=== PATIENT | male | born 1955 | race Caucasian/White ===

== ENCOUNTER 2019-12-22 12:54 | Outpatient (REF) | payer BC, SELFPAY ==
[2019-12-22 20:59] LABS: ALT 36 U/L (16-63); AST 29 U/L (15-37); Calculated LDL 51 mg/dL (<100); Cholesterol 129 mg/dL (<200); HDL Cholesterol 73 mg/dL (40-60); Triglyceride 27 mg/dL (<150)
[2019-12-26 09:06] LABS: PSA, Screening 0.2 ng/mL (0.0-4.5)
== END 2019-12-22 13:14 ==
LOC: NCHCN 12:54
PROVIDERS: PCP Nurse Practitioner; Visit Provider Nurse Practitioner Family
DX: Z00.00 Encounter for general adult medical examination without abnormal findings (principal); Z13.220 Encounter for screening for lipoid disorders; Z12.5 Encounter for screening for malignant neoplasm of prostate
CPT/HCPCS: 80061; 84153; 84450; 84460

== ENCOUNTER 2020-07-03 02:04 | Outpatient (CLI) | payer BC, SELFPAY ==
--- NOTE | 2020-07-03 16:03 | DI.US_ITS ---
APPROVED REPORT EXAM: Comprehensive 2D, Doppler, and color-flow Echocardiogram Patient Location: Out-Patient Machine Cell Tuber: Charlette Somers RDCS (AE) Indications: Mitral valve prolapse, Mitral Regurgitation Other Information Study Quality: Adequate Conclusion Left Ventricle : The left ventricle is normal size. The left ventricular systolic function is normal. The left ventricular ejection fraction is within the normal range. There is normal left ventricular wall thickness. There is normal LV segmental wall motion. The left ventricular diastolic function is normal. LVEF is 60%. Right Ventricle : The right ventricle is normal size. The right ventricular systolic function is norm al. The RVSP is 25.2 mmHg. Atria : The left atrium size is normal. The right atrium size is normal. Mitral Valve : The mitral valve is normal in structure. Mild to moderate mitral regurgitation. Mitral regurgitation jet is eccentrically directed. No evidence of mitral valve stenosis. Mild mitral valve prolapse of posterior leaflet. Great Vessels : The aortic root is normal in size. The ascending aorta is normal in size. Aortic arch is not well visualized. IVC is normal in size and collapses >50% with inspiration. Compared to study from 06/12/2017, there is no significant change. Wall motion Left Ventricle The left ventricle is normal size. The left ventricular systolic function is normal. The left ventric ular ejection fraction is within the normal range. There is normal left ventricular wall thickness. T here is normal LV segmental wall motion. The left ventricular diastolic function is normal. There is no ventricular septal defect visualized. LVEF is 60%. Right Ventricle The right ventricle is normal size. The right ventricular systolic function is normal. The RVSP is 25 .2 mmHg. Atria The left atrium size is normal. The right atrium size is normal. The interatrial septum is intact wit h no evidence for an atrial septal defect. Aortic Valve The aortic valve is normal in structure. Aortic valve is trileaflet. There is no aortic valvular sten osis. No aortic regurgitation is present. Mitral Valve The mitral valve is normal in structure. No evidence of mitral valve stenosis. Mild to moderate tanner l regurgitation. Mitral regurgitation jet is eccentrically directed. Mild mitral valve prolapse of po sterior leaflet. Tricuspid Valve The tricuspid valve is normal in structure. There is no tricuspid valve stenosis. Trace to mild tricu spid regurgitation. Pulmonic Valve The pulmonary valve is normal in structure. There is no pulmonic valvular stenosis. There is no pulmo carroll valvular regurgitation. Great Vessels The aortic root is normal in size. The ascending aorta is normal in size. Aortic arch is not well vis ualized. IVC is normal in size and collapses >50% with inspiration. Pericardium There is no pericardial effusion. 2D Dimensions IVSD d PLAX 0.91 cm M: 0.6-1.2 LV Vol A2C d MOD 150.6 mL LVPW d PLAX 0.93 cm M: 0.6 - 1.2 LV Vol A4C d MOD 144.1 mL LVID d PLAX 5.08 cm M: 4.2 - 5.8 LA vol/ BSA A2C s A-L 26.0 mL/m2 LVDs 3.25 cm M: 2.5 - 4.0 LA vol/ BSA A4C s A-L 22.9 mL/m2 Ao Root d 3.11 cm M: 3.1 - 3.7 LA Vol/ BSA Biplane s A-L 26.6 mL/m2 RA Area A4C 14.94 cm2 LA Area A4C s MOD 16.19 cm2 RA Vol/ BSA A4C s A-L 18.9 mL/m2 LA Area A2C s MOD 18.81 cm2 Ao Asc Diam d 3.06 cm M: 2.6 - 3.4 LV EF A4C MOD 60.5 % LV EF Teichholz 64.5 % LV EF A2C MOD 60.6 % LVEF (Ledbetter's) 60.29 % M: 52 - 72 LV EF Biplane MOD 60.3 % LV Volume 111.88 mL M: 62 - 150 SV 89.45 mL LV Volume Index 57.08 mL/m2 M: 34 - 74 SV Index 45.45 mL/m2 LV Vol Biplane MOD 148.4 mL FS 35.35 % M-Mode TAPSE 2.85 cm (M/F) >1.7 LV Diastology MV E' medial 0.114 (>0.07 m/s) E/A Ratio 1.1 LV E/e MED 6.40 (<14) MV E Vmax 0.73 (0.4-1.3 m/s) MV E' lateral 0.148 (>0.1 m/s) MV A Vmax 0.65 (0.4-1.3 m/s) LV E/e LAT 4.90 (<14) MV E/A Ratio 1.07 MV E/E' medial 6.41 MV E/E' lateral 4.93 Aortic Valve LVOT Area 3.74 cm2 AoV Area Vmax 3.28 cm2 LVOT Vmax 1.00 m/s AoV Area/ BSA (Vmax) 1.67 cm2/m2 LVOT Mean Cash. 0.67 m/s LUCILA Mean Cash. 3.33 cm2 LVOT Peak Grad 4.0 mmHg LUCILA Mean Cash. Index 1.69 cm2/m2 LVOT Mean Grad 2.1 mmHg LVOT VTI 0.192 m LVOT Diam s 2.15 cm AoV Vmax 1.14 m/s Velocity Ratio 0.87 AoV Mean Cash. 0.76 m/s AoV Peak Grad 5.2 mmHg LVOT SV 71.99 mL AoV Mean Grad 2.6 mmHg AoV VTI 0.241 m AoV Area VTI 2.99 cm2 AoV Area/ BSA (VTI) 1.52 cm/m2 Mitral Valve MV DT 211 (160-240 msec) MR Vmax 5.57 m/s MV PHT 61 msec MR VTI 1.670 m MV Area PHT 3.59 cm2 MR Peak Grad 124.2 mmHg MV VTI 0.211 m MR Mean Grad 93.4 mmHg MV VTI Annulus 0.214 m MV Area VTI 3.46 (4.0-6.0 cm2) Pulmonary Valve PV Vmax 0.97 (0.5-1.5 m/s) RVOT Peak Gr. 2.55 mmHg PV Peak Grad 3.7 mmHg RVOT Mean Gr. 1.35 mmHg PV Mean Grad 2.2 mmHg RVOT VTI 0.159 m PV VTI 0.191 m RVOT Vmax 0.80 m/s Tricuspid Valve TR Peak Grad 22.1 mmHg TR Vmax 2.35 m/s RA Pressure 3.00 mmHg RVSP (TR) 25.2 mmHg
== END 2020-07-03 02:24 ==
PROVIDERS: PCP Nurse Practitioner Family; Visit Provider Nurse Practitioner Family
DX: I34.0 Nonrheumatic mitral (valve) insufficiency (principal); I34.1 Nonrheumatic mitral (valve) prolapse
CPT/HCPCS: 93306

== ENCOUNTER 2024-12-21 17:55 | Outpatient (REF) | payer BC, SELFPAY ==
[2024-12-21 20:42] LABS: HCT 44.6 % (40.0-50.0); HGB 15.1 g/dL (13.5-17.5); MCH 32.8 pg (27.0-33.0); MCHC 33.9 % (32.0-36.0); MCV 97 fL (80-95); MPV 10.6 fL (8.0-11.0); Platelet Count 207 10^3/uL (130-400); RBC 4.60 10^6/uL (4.36-5.78); RDW 12.3 % (11.8-14.1); RDW-SD 43.8 fL; WBC 5.41 10^3/uL (4.4-10.8)
[2024-12-21 22:02] LABS: ALT 22 U/L (16-63); AST 24 U/L (15-37); Albumin 4.2 g/dL (3.4-5.0); Alkaline Phosphatase 76 U/L (46-116); Anion Gap 8.4 mmol/L (3-11); BUN 11 mg/dL (7-18); Bilirubin, Total 0.7 mg/dL (0.2-1.0); CO2 29.6 mmol/L (21.0-32.0); Calcium 9.1 mg/dL (8.5-10.1); Calculated LDL 85 mg/dL (<100); Chloride 102 mmol/L (98-107); Cholesterol 163 mg/dL (<200); Estimated GFR 97.00 (mL/min/1.73m2); Glucose 81 mg/dL (74-106); HDL Cholesterol 65 mg/dL (>or=40); Potassium 4.3 mmol/L (3.5-5.1); Sodium 140 mmol/L (136-145); Total Protein 7.5 g/dL (6.4-8.2); Triglyceride 65 mg/dL (<150)
[2024-12-23 09:11] LABS: PSA, Screening 0.3 ng/mL (<=4.5)
== END 2024-12-21 17:56 | disposition home or self-care (01) ==
LOC: NCHCN 17:55
PROVIDERS: PCP Nurse Practitioner Family; Visit Provider Nurse Practitioner Family
DX: Z00.00 Encounter for general adult medical examination without abnormal findings (principal); Z12.5 Encounter for screening for malignant neoplasm of prostate
CPT/HCPCS: 80053; 80061; 84153; 85027

== ENCOUNTER 2025-01-17 00:54 | Outpatient (CLI) | payer BC, SELFPAY ==
--- NOTE | 2025-01-17 14:30 | DI.US_ITS ---
APPROVED REPORT EXAM: Comprehensive 2D, Doppler, and color-flow Echocardiogram Patient Location: Out-Patient Apprentice Plumber: Charlette Somers RDCS (AE) Indications: Non rheumatic mitral valve insufficiency Other Information Study Quality: Adequate Conclusion Normal left ventricular wall thickness and chamber size. Ejection fraction is 60%. Wall motion is normal Normal right ventricular size and function Both atria are normal in size There are no structural valvular abnormalities Mild mitral valve prolapse with mild mitral regurgitation Wall motion Left Ventricle The left ventricle is normal size. The left ventricular systolic function is normal. The left ventricular ejection fraction is within the normal range. There is normal left ventricular wall thickness. There is normal LV segmental wall motion. There is no ventricular septal defect visualized. LVEF is 60%. Right Ventricle The right ventricle is normal size. The right ventricular systolic function is normal. Atria The left atrium size is normal. The right atrium size is normal. The interatrial septum is intact with no evidence for an atrial septal defect. Aortic Valve The aortic valve is normal in structure. There is no aortic valvular stenosis. No aortic regurgitation is present. Mitral Valve The mitral valve is normal in structure. No evidence of mitral valve stenosis. Mild mitral regurgitation. Mild mitral valve prolapse. Tricuspid Valve The tricuspid valve is normal in structure. There is no tricuspid valve stenosis. Trace tricuspid regurgitation. Unable to assess PA pressure. Pulmonic Valve The pulmonary valve is normal in structure. There is no pulmonic valvular stenosis. There is no pulmonic valvular regurgitation. Great Vessels The aortic root is normal in size. The ascending aorta is normal in size. Aortic arch is normal in caliber. IVC is normal in size and collapses >50% with inspiration. Pericardium There is no pericardial effusion. 2D Dimensions IVSD d PLAX 0.90 cm M: 0.6-1.2 Ao Root d 3.55 cm M: 3.1 - 3.7 LVPW d PLAX 0.90 cm M: 0.6 - 1.2 Ao Asc Diam d 3.21 cm M: 2.6 - 3.4 LVID d PLAX 5.20 cm M: 4.2 - 5.8 LVDs 3.57 cm M: 2.5 - 4.0 LV EF Teichholz 58.9 % FS 31.38 % LV EDV (Teich) 129.5 mL LV ESV (Teich) 53.3 mL Auto EF LV EDV A4C 119.1 mL LV EDV A2C 183.5 mL LV EDV BP 150.8 mL LV ESV A4C 49.2 mL LV ESV A2C 77.2 mL LV ESV BP 61.8 mL LVEF(%) A4C 58.7 % LVEF(%) A2C 57.9 % LVEF(%) BP 59.0 % LV SV A4C 69.9 ml LV SV A2C 106.3 ml LV SV BP 89.0 ml LV CO A4C 4.9 L/min LV CO A2C 7.8 L/min LV CO BP 6.4 L/min HR A4C 70.73 BPM HR A2C 73.63 BPM LV EDV Index (BP) LA Volume LA Length A4C 4.9 cm LA Length A2C 4.7 cm LA Area A4C s 15.28 cm2 LA Area A2C s 17.80 cm2 LA Vol A4C A-L 40.31 mL LA Vol A2C A-L 56.76 mL LA Vol Biplane A-L 48.7 mL LA Vol/BSA A4C A-L LA Vol/BSA A2C A-L LA Vol/BSA BP A-L 25.1 mL/m2 LA Vol A4C MOD 34.3 mL LA Vol A2C MOD 53.1 mL LA Vol BP MOD 43.3 mL RA Volume RA Area A4C 13.1 cm2 RA ESV A4C (A-L) 30.9mL RA Vol/BSA A4C A-L RA Length A4C 4.7 cm RA ESV A4C (MOD) 30.4mL LV Diastology MV E' medial 0.104 (>0.07 m/s) MV E Vmax 0.73 (0.4-1.3 m/s) MV E/E' MED 7.05 (<14) MV A Vmax 0.60 (0.4-1.3 m/s) MV E' lateral 0.127 (>0.1 m/s) E/A Ratio 1.2 MV E/E' LAT 5.77 (<14) MV E' Average 0.116 m/s MV E/E'(average) 6.35 Aortic Valve AoV Vmax 1.03 m/s LVOT Vmax 0.85 m/s AoV Peak Grad 4.3 mmHg LVOT Peak Grad 2.9 mmHg AoV Area (Vmax) 2.89 cm2 LVOT VTI 0.209 m AoV VTI 0.234 m LVOT Mean Grad 1.5 mmHg AoV Mean Cash. 0.72 m/s LVOT SV 73.22 mL AoV Mean Grad 2.4 mmHg LVOT Diam s 2.10 cm AoV Area (VTI) 3.12 cm2 AV Regurg Peak Gr. 4.28 mmHg Velocity Ratio 0.83 Mitral Valve MV DT 225 (160-240 msec) MV Vmax TIPS 0.68 m/s MV Mean Grad 1.0 (<2mmHg) MV VTI 0.169 m Pulmonary Valve PV Vmax 0.77 (0.5-1.5 m/s) RVOT Vmax 0.67 m/s PV Peak Grad 2.4 mmHg RVOT Peak Gr. 1.8 mmHg PV Mean Cash 0.54 m/s RVOT VTI 0.121 m PV Mean Grad 1.3 mmHg RVOT Mean Gr. 0.8 mmHg Tricuspid Valve TV S' 0.14 m/s
== END 2025-01-17 01:14 ==
LOC: DI 00:54
PROVIDERS: PCP Nurse Practitioner Family; Visit Provider Internal Medicine Cardiovascular Disease
DX: I34.0 Nonrheumatic mitral (valve) insufficiency (principal)
CPT/HCPCS: 93306

== ENCOUNTER 2025-02-03 06:41 | Day surgery (SDC) | payer BC, SELFPAY ==
--- NOTE | 2025-02-02 17:52 | PDOC.DSDIS_ITS ---
Date of service: 02/03/25 Discharge Plan Disposition Patient Disposition: Home Condition: Good Discharge Details Reason For Visit: screening colonoscopy Attending Provider: Enrico Harris Primary Care Provider: Niurka Blanco Home Meds and New Rx's Prescriptions: Continued aspirin 81 mg tablet 81 mg PO DAILY varenicline tartrate [Chantix Starting Month Box] 0.5 mg (11)- 1 mg (42) tablets,dose pack See Rx Instructions PO PER PKG DIR Rx Instructions: PO PER PKG DIR Discontinued bisacodyl [Dulcolax (bisacodyl)] 5 mg tablet,delayed release (DR/EC) 5 mg PO ONCE Qty: 4 0RF Rx Instructions: take per colonoscopy instructions polyethylene glycol 3350 17 gram/dose powder 238 g PO ONCE Qty: 238 0RF Rx Instructions: take per colonoscopy instructions Discharge Instructions Instructions: Colon polyps, Diverticulosis Additional Instructions: Siddharth, was good to see you today, and hope you are comfortable through the procedure. Things went smoothly. Your prep was excellent, and I could see everything fine. I did find, and remove several polyps today. Generally, these are small and not particularly worrisome, but the number of polyps in total is a little bit concerning. However I can see that this is also your first colonoscopy. Furthermore, several of the polyps were hyperplastic appearing, which are not thought to be dangerous. In addition to removal of some of the polyps, I also cauterized, or burned several of these. Because of the number of polyps that were removed today, I would expect to have some blood in your bowel movements over the next few days. It should get a little less and less each day. If you notice that the bleeding is increasing, or you are having any symptoms like lightheadedness fatigue weakness etc., please let me know. I do not expect any of that to happen, but we should be in touch if you have any problems. The report from all of the polyps that I removed today will take abo ut a week or 2 to get back, and once I have that I will be in touch. My inclination at this point is to repeat your colonoscopy at 1 year. But, let me see the final results of the pathology report before we make any firm decisions. 1. If tolerated, consume a soft, low fiber diet for 1-2 days. 2[address] Do not drive, drink alcohol, operate machinery, make critical decisions, or do activities that require coordination or balance for 24 hours. 3. Because air was put into your colon during the procedure, expelling air from your rectum (passing gas or farting) is normal. 4. You may not have a bowel movement for 1-3 days because of the colonoscopy prep. This is normal. 5. Go directly to the emergency room if you notice any of the following: Develop chills (warm to touch), or if you have a thermometer and your temperature is above 101 Difficulty breathing or difficultly swallowing Persistent vomiting Severe abdominal pain, other than gas cramps Severe chest pain Black, tarry stools Any bleeding ? exceeding one tablespoon 6. Call your physician if the site where your intravenous was started becomes red, swollen, painful, and warm to touch. 7. Your physician has reviewed your pre-procedure medications. Please continue to take those medications as previously ordered. You will be given specific information/education regarding any changes to your medications before leaving. Stand Alone Forms: Anesthesia Discharge InstKavon, Terrance Cortez (DSU) Activity:: Activity as Tolerated Diet:: As Tolerated Discharge Orders Discharge Orders: Discharge Order (Routine); Ordered 02/02/25 Ordered By: Enrico Harris DS: Diagnosis Discharge Diagnosis (1) Encounter for screening colonoscopy: Status: Acute Asessment and Plan: Follow-up on polypectomy results
--- NOTE | 2025-02-02 17:54 | W.COLOREPORT ---
Date of service: 02/03/25 Time of Service: 09:29 Colonoscopy Report Date of procedure: 02/03/25 Pre-op diagnosis general: screening colonoscopy Post-op diagnosis procedure note: other (Colon polyps, diverticulosis) Procedure: colonoscopy with polypectomy Surgeon: Enrico Harris Anesthesia Type: General:No Airway Estimated blood loss (mL): 10 Pathology: other (Multiple colon and rectal polyps) Complications: None Disposition: same day Indications: Jc is a 69 year old man who had a positive cologuard test. He needs a follow up screening colonoscopy Prep: Miralax/Dulcolax Procedure Start Time: 08:24 Procedure End Time: 09:10 Retraction Time: 34 Findings: Multiple colon rectal polyps Procedure Description: After the induction of anesthesia, and with the patient in left lateral decubitus position, I began by performing an external anorectal exam.? Perineum and skin were normal, as was the anal verge.? There was no evidence of external hemorrhoids.? Next, I performed a digital rectal exam.? I did not appreciate any abnormal findings.? Next, I advanced a colonoscope into the rectal vault.? I performed retroflexion.? This appeared normal.? Using irrigation, I then advanced the colonoscope beyond the rectal folds and into the sigmoid colon before advancing towards the cecum.? The scope was noted to be in the cecum by identification of the ileocecal valve and appendiceal orifice.? I then began withdrawing the colonoscope using repeated irrigation as necessary for full evaluation of the colonic mucosa. Around 75 cm beyond the anal verge, within the ascending colon is a flat area of polypoid tissue. This is about 0.5 cm across. Narrowband imaging was used to assist with the analysis. Clinical features did seem consistent with a sessile adenomatous polyp. This was removed in total with cold snare polypectomy. There was minimal bleeding. Several other polyps were found along the length of the colon, mostly on the left side. These were removed using a combination of cold snare polypectomy, a energize snare polypectomy, and cold forceps. There were also multiple subcentimeter polyps in the distal sigmoid and proximal rectal segment. The overwhelming majority of these appeared consistent with hyperplastic polyps. A few of the more adenomatous appearing polyps were removed, and the remainder were treated with fulguration. There was no worrisome bleeding from any of the polypectomy sites. There is also some sigmoid diverticulosis. Once the scope was withdrawn to the level of the rectum, great care was taken to examine portions of the rectal folds.? Finally, the scope was withdrawn and the patient was brought to the same-day surgery recovery unit as the anesthetic wore off. ?The findings and instructions were shared with the patient prior to discharge. [place] Bowel Prep [place] Bowel Prep Right Colon: 3 Left Colon: 3 Transverse Colon: 3 Total Score: 9
[2025-02-03] MEDS: Lactated Ringers 1,000 ML 80 ML IV (07:07)
--- NOTE | 2025-02-03 07:24 | W.ANESPRE ---
General Info Date of Service Date Performed: 02/03/25 Height: 5 ft 10 in Weight: 74.1 kg Body Mass Index (BMI): 23.4 Surgical Procedure: Operation Date: 02/03/25 08:20 Proposed Procedure Side Surgeon abena Harris MD Meds Allergies and Home Medications Allergies Allergy/AdvReac Type Severity Reaction Status Date / Time No Known Allergies Allergy Verified 02/03/25 07:02 Home Medication ?Medication ?Instructions ?Recorded aspirin 81 mg tablet 81 mg PO DAILY 01/17/25 varenicline tartrate 0.5 mg (11)-1 See Rx Instructions PO PER PKG DIR 01/17/25 mg (42) tablets in a dose pack (Chantix Starting Month Box) Current Visit Medications: Current Medications Generic Name Dose Route Start Last Admin Trade Name Freq PRN Reason Stop Dose Admin Ringer's Solution 1,000 mls @ 80 mls/hr 02/03/25 06:00 02/03/25 07:07 IV 02/03/25 23:59 80 mls/hr INFUSION [place] Administration IV Miscellaneous Supplies 1 each 02/03/25 06:00 Iv Access IV 02/03/25 23:59 DIRECTED [place] Sodium Chloride 0 ml 02/03/25 06:00 Normal Saline Flush 10 Ml Syr IV 02/03/25 23:59 PRN PRN Sodium Chloride 0 ml 02/03/25 06:00 Normal Saline 10 Ml Vial IJ 02/03/25 23:59 DIRECTED PRN Sterile Water 0 ml 02/03/25 06:00 Water,Injection,Sterile 10 Ml Vial IJ 02/03/25 23:59 DIRECTED PRN PFSH Active Problems Active Problems: Problem Status Onset Code Encounter for screening colonoscopy Acute Z12.11 Positive colorectal cancer screening using Cologuard test Acute R19.5 Mitral valve regurgitation Chronic I34.0 Elevated blood pressure reading without diagnosis of hypertension Acute R03.0 Nicotine dependence Acute F17.200 Hyperlipidemia Acute E78.5 Sensorineural hearing loss, bilateral Acute H90.3 Sensorineural hearing loss of both ears Acute H90.3 Medical History Medical History Family history of breast cancer in sister Inguinal hernia Tobacco Smoking/Tobacco Use Status: Current every day Tobacco Type: cigarettes Alcohol Alcohol Intake: current Alcohol intake frequency: 0-2 drinks per day Alcohol type: beer Substance Use Substance use: Never Substance use type: does not use Imaging and Studies Imaging and Studies Study information below may be from another EMR and interpreted by another provider. Please see original notes in EMR for more complete details. Echocardiogram Summary: 01/17/25 Conclusion Normal left ventricular wall thickness and chamber size. Ejection fraction is 60%. Wall motion is normal Normal right ventricular size and function Both atria are normal in size There are no structural valvular abnormalities Mild mitral valve prolapse with mild mitral regurgitation Anesthesia Assessment and Plan Anesthesia History Personal History: No History of Anesthesia Complications Family History: No Family History of Anesthesia Complications Exercise Tolerance Exercise Tolerance: Metabolic Equivalents>4 Pertinent Negatives Pertinent Negatives: No Symptoms of GERD, No Major Cardiovascular Symptoms or Complaints, No Major Pulmonary Symptoms or Complaints and No History of CVA/TIA Cardiac & Pulmonary Exam Cardiac Exam: Normal S1/S2 Heart Sounds Pulmonary Exam: Clear Bilateral Breath Sounds Implantable Cardiac Device Does patient have a Pacemaker or an ICD?: No Airway Exam Known Difficult Airway: No Mallampati Class: 2 Mouth Opening: Normal (> 3cm) Thyromental Distance: Greater than 3 cm Neck Range of Motion: Full ROM Neck Circumference: Normal Teeth Condition: Normal Dentition ASA Classification ASA Score: ASA 2 Emergency Case?: No NPO Status NPO Status: NPO Clears >2 hours, Solids >8 hours Anesthesia Plan Resuscitation Status: Full Code Anesthesia Technique: General Anesthesia Airway Planned: Natural Airway Monitors Used: Standard Monitors
[2025-02-03 07:25] VITALS: BMI 23.4
--- NOTE | 2025-02-03 08:30 | BOWEL_PTH ---
PATIENT: Jc Romero LOC: [facility] U#:[id number] AGE/SX: 69/M ROOM: RE02/03/[address]: Enrico Harris MD : [id number] BED: DIS: 02/03/2025 SPEC #: [id number] RECD: 02/03/25 11:14 STATUS: MELISA RE #: [id number] SIAMA: 02/03/25 08:[address]: Enrico Harris DEPT: Surgical Specimen RECD BY: Elizabeth Flores ENTERED: 02/03/25 11:19 SP TYPE: Bowel OTHR DR: Niurka Blanco Tissues: 1 - BIOPSY BOWEL 2 - BIOPSY BOWEL 3 - BIOPSY BOWEL 4 - BIOPSY BOWEL 5 - BIOPSY BOWEL 6 - BIOPSY BOWEL 7 - BIOPSY BOWEL 8 - BIOPSY BOWEL 9 - BIOPSY BOWEL 10 - BIOPSY BOWEL Procedures: GROSS AND MICRO LEVEL 4 Comments: [id number]
[2025-02-03 09:15] VITALS: BP 110/67; PULSE 74; RESP 16; TEMP 35.6; O2SAT 100
--- NOTE | 2025-02-03 09:30 | W.ANESPOSTOP ---
Postoperative Evaluation Date, Time and Location Date Performed: 02/03/25 Time Performed: 09:32 Patient Location: Day Surgery Unit Vital Signs Most Recent Imported Vital Signs: Most Recent Vital Signs Temp Pulse Resp BP Pulse Ox 35.6 C L 74 16 110/67 100 02/03/25 09:15 02/03/25 09:15 02/03/25 09:15 02/03/25 09:15 02/03/25 09:15 Pain Score Most Recent Pain Score: Most Recent Pain Score Pain Level 0 02/03/25 09:15 Assessment Mental Status: Awake (Alert & Oriented to Patient Baseline) Airway and Respiratory Function: Patent airway with normal (patient baseline) respiratory exam Cardiovascular Function: Hemodynamically Stable Hydration Status: Adequately Hydrated Nausea & Vomiting: No Nausea or Vomiting Pain: Pt. Denies Any Pain Peripheral Nerve Block: Patient did not receive a nerve block
[2025-02-03 09:45] VITALS: BP 139/76; PULSE 62; RESP 16; TEMP 36.5; O2SAT 100
== END 2025-02-03 10:01 | disposition home or self-care (01) ==
LOC: SUR 06:42
PROVIDERS: PCP Nurse Practitioner Family; Visit Provider Surgery
PROC: 0DJD8ZZ Inspection of Lower Intestinal Tract, Via Natural or Artificial Opening Endoscopic (ICD-10-PCS; CPT 45378; principal; 2025-02-03 08:15)
DX: Z12.11 Encounter for screening for malignant neoplasm of colon (principal); D12.4 Benign neoplasm of descending colon; K57.30 Diverticulosis of large intestine without perforation or abscess without bleeding; K62.1 Rectal polyp; D12.5 Benign neoplasm of sigmoid colon
CPT/HCPCS: 45385; 88305; J2003; J2704

== ENCOUNTER 2025-02-06 16:50 | Emergency (ER) | payer BC, SELFPAY ==
[2025-02-06 16:53] VITALS: BP 168/82; PULSE 76; RESP 16; TEMP 36.7; O2SAT 98
[2025-02-06] MEDS: Fluorescein STRIPS 100/BOX 1 MG OP (17:07)
[2025-02-06] MEDS: Tetracaine 0.5% 4 ML BTL OP (17:07)
--- NOTE | 2025-02-06 17:43 | W.ED.GENAD ---
Discharge Plan Disposition Patient Disposition: Home Condition: Good Discharge Details Clinical Impression: Abrasion, corneal Primary Care Provider: Niurka Blanco ED Provider: Chacha Bernstein Home Meds and New Rx's Prescriptions: New erythromycin 5 mg/gram (0.5 %) ointment 0.5 inch ophthalmic (eye) QID Qty: 3.5 0RF oxycodone 5 mg capsule 5 mg PO Q6H PRNQty: 8 0RF Discharge Instructions Instructions: Corneal Abrasion ED Additional Instructions: Tylenol and ibuprofen over the counter for pain; follow the directions on the bottle. You can take oxycodone 5mg up to every 6 hours as needed for breakthough pain. Do not drive or operate machinery while you are taking this medication. Antibiotic ointment to your right eye four times a day for the next 5 days. You need to see an superintendent plant tomorrow for evaluation. Please call your eye doctor in the morning to schedule an appointment to be seen that day. If you are unable to do this for any reason, please return to the emergency department. Call your primary care doctor in the morning to schedule an appointment to follow up on your visit here. At that visit please mention your blood pressure which is high here today. Return to the emergency department for new or worsening symptoms including thick discharge from your eye, if your vision or pain worsens, or if you have any other concerns. HPI General Mode of arrival: ambulatory. Date/Time Provider Initiated Documentation: 02/06/25 16:56. Limitations to Documentation: no limitations. Information obtained by: patient and family. HPI Narrative: 69yo M presenting with right eye injury. 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 Was wearing his glasses but no safety goggles. Since then has had worsening eye pain, worse with rightward gaze, and a foreign body sensation. Irrigated his eye at home prior to arrival with no improvement in symptoms. Eye is watering and pain is severe, difficultly to open his eye 2/t pain. No other discharge from eye. Does not wear contacts. No history of eye surgeries, glaucoma, or other eye problems. No other injuries. Was in his usual state of health prior to this event. Related Data Home Medications ?Medication ?Instructions ?Recorded ?Confirmed erythromycin 5 mg/gram (0.5 %) eye 0.5 inch ophthalmic (eye) QID #3.5 02/06/25 ointment grams oxycodone 5 mg capsule 5 mg PO Q6H PRN #8 caps 02/06/25 Previous Rx's ?Medication ?Instructions ?Recorded erythromycin 5 mg/gram (0.5 %) eye 0.5 inch ophthalmic (eye) QID #3.5 02/06/25 ointment grams oxycodone 5 mg capsule 5 mg PO Q6H PRN #8 caps 02/06/25 Allergies Allergy/AdvReac Type Severity Reaction Status Date / Time No Known Allergies Allergy Verified 02/06/25 16:55 General Stated Complaint: EyeProblem SCOOBY: 4 Review of Systems Narrative: see HPI Exam Narrative Exam Narrative: General: Alert, well appearing, well nourished, in no acute distress. Head: Normocephalic, atraumatic Cardiac: ?RRR Resp: No respiratory distress. . Abd: ?Non-distended Extremities: ?No deformities.? Neurologic: GCS 15. ? Moves all extremities freely against gravity Detailed Eye Eye: ?PERRL ?Pain in right eye with rightward gaze. Otherwise EOM full and pain free.? Visual hagen intact to confrontation bilaterally R: ? ? VA- 20/50 ? ?Lids/lashes- nml ?Conjuctiva-injected ?Cornea: Clear ? Flur: Large irregular corneal abrasion 12oclock to 3olock cover ~25% of cornea. Negative [place]. L: ? ? VA- 20/25 ? 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 Since then has had worsening eye pain, worse with rightward gaze, and a foreign body sensation. Hypertensive on arrival, vital signs otherwise reassuring. Right conjuctiva injected, visual acuity diminished (20/50) right compared to left. Tetracaine drops instilled with immediate relief of pain. Eyelid inverted with no foreign body identified. Slit lamp exam with large irregular corneal abrasion over ~25% of right cornea. Negative Chemo's, no evidence of globe rupture, corneal ulcer, hyphema. Given erythromycin ointment, tylenol/ibuprofen/oxcodone while in the ED and will prescribe short course of oxycodone for pain. Will need to see ophthalmology tomorrow; patient would [place] one in [place] which [place]. The importance of optho followup was stressed and he was advised to re-present to the ED if he was unable to be seen tomorrow. Discharged home; discharge instructions and return precautions were reviewed with patient who verablized understanding. All questions were answered and he is in full agreement with the plan. PFSH All Active Problems (Updated 02/06/25 @ 17:45 by Chacha Bernstein MD) Abrasion, corneal (Acute) Encounter for screening colonoscopy (Acute) Positive colorectal cancer screening using Cologuard test (Acute) Mitral valve regurgitation (Chronic) Elevated blood pressure reading without diagnosis of hypertension (Acute) Nicotine dependence (Acute) Hyperlipidemia (Acute) Sensorineural hearing loss, bilateral (Acute) Sensorineural hearing loss of both ears (Acute) Medical History (Updated 02/06/25 @ 17:45 by Chacha Bernstein MD) Family history of breast cancer in sister Inguinal hernia Surgical History (Updated 02/03/25 @ 14:01 by Daiana Bal) Hx of colonoscopy with polypectomy (~02/03/25) Social History Smoking/Tobacco Use Status: Current every day Tobacco Type: cigarettes Smoking risk assessment performed?: Yes Alcohol Intake: current Alcohol Intake frequency: 0-2 drinks per day Alcohol type: beer Drug use: Never Substance use type: does not use Housing: house Do you feel safe at home: Yes Do you feel safe in your relationship?: Yes
[2025-02-06] MEDS: Ibuprofen 800 MG TAB PO (18:30)
[2025-02-06] MEDS: Acetaminophen 500 MG TAB 1000 MG PO (18:30)
[2025-02-06] MEDS: Erythromycin Ophth Oint 3.5 GM TUBE OD (18:31)
[2025-02-06] MEDS: oxyCODONE 5 MG TAB PO (18:36)
[2025-02-06 18:37] VITALS: BP 164/82; PULSE 72; RESP 16; O2SAT 97
== END 2025-02-06 18:38 | disposition home or self-care (01) ==
PROVIDERS: Emergency Provider Student in an Organized Health Care Education/Training Program; PCP Nurse Practitioner Family
DX: S05.01XA Injury of conjunctiva and corneal abrasion without foreign body, right eye, initial encounter (principal); X58.XXXA Exposure to other specified factors, initial encounter
CPT/HCPCS: 99283